=== PATIENT | male | born 1970 | race African-American/Black ===

== ENCOUNTER 2019-04-12 14:36 | Emergency (ER) | payer SELFPAY ==
[2019-04-12] MEDS ORDERED: ASPIRIN 81 MG TABLET, CHEWABLE PO ONE (15:13)
--- NOTE | 2019-04-12 15:15 | ER Document Report ---
ED Medical Screen (RME) - General Chief Complaint: Chest Pain Stated Complaint: CHEST PAIN Time Seen by Provider: 04/12/19 15:06 Mode of Arrival: Ambulatory Information source: Patient Notes: Patient presents emergency department with complaints of chest pain sharp that comes and goes on the left side of his chest since yesterday. Denies the chest pain at this time. Denies nausea vomiting diarrhea. Denies shortness of breath. Denies history of cardiac disease. Patient does have history of high blood pressure. Has been out of his medication for the past couple weeks. Patient is vacationing here from [place]. Denies family history of cardiac disease. Patient left eye swollen. Reports that started today. Does not wear contacts. I have greeted and performed a rapid initial assessment of this patient. A comprehensive ED assessment and evaluation of the patient, analysis of test results and completion of the medical decision making process will be conducted by additional ED providers. Dictation of this chart was performed using voice recognition software; therefore, there may be some unintended grammatical errors. TRAVEL OUTSIDE OF THE [place] IN LAST 30 DAYS: No - Related Data Allergies/Adverse Reactions: No Known Allergies Allergy (Verified 04/12/19 14:37) Physical Exam - Vital signs Vitals: Temp Pulse Resp BP Pulse Ox 98.9 F 84 20 137/89 H 97 04/12/19 14:50 04/12/19 14:50 04/12/19 14:50 04/12/19 14:50 04/12/19 14:50 Course - Vital Signs Vital signs: Temp Pulse Resp BP Pulse Ox 98.9 F 84 20 137/89 H 97 04/12/19 14:50 04/12/19 14:50 04/12/19 14:50 04/12/19 14:50 04/12/19 14:50
[2019-04-12 15:42] LABS: APPEARANCE,URINE SLIGHTLY-CLOUDY; BILIRUBIN,URINE NEGATIVE (NEGATIVE); COLOR,URINE YELLOW; GLUCOSE, URINE NEGATIVE (NEGATIVE); KETONES,URINE NEGATIVE (NEGATIVE); LEUKOCYTE ESTERASE,URINE NEGATIVE (NEGATIVE); NITRITE,URINE NEGATIVE (NEGATIVE); PROTEIN,URINE NEGATIVE (NEGATIVE); URINE SPECIFIC GRAVITY 1.026; UROBILINOGEN,URINE NEGATIVE mg/dL (<2.0)
--- NOTE | 2019-04-12 15:52 | RADIOLOGY REPORT (SQ) ---
EXAM DESCRIPTION: CHEST 2 VIEWS COMPLETED DATE/TIME: 04/12/2019 3:41 pm REASON FOR STUDY: cp COMPARISON: None. EXAM PARAMETERS: NUMBER OF VIEWS: two views TECHNIQUE: Digital Frontal and Lateral radiographic views of the chest acquired. RADIATION DOSE: NA LIMITATIONS: none FINDINGS: LUNGS AND PLEURA: No opacities, masses or pneumothorax. No pleural effusion. MEDIASTINUM AND HILAR STRUCTURES: No masses or contour abnormalities. HEART AND VASCULAR STRUCTURES: Heart normal size. No evidence for failure. BONES: No acute findings. HARDWARE: None in the chest. OTHER: No other significant finding. IMPRESSION: NO ACUTE RADIOGRAPHIC FINDING IN THE CHEST. TECHNICAL DOCUMENTATION: JOB ID: [id number] [employer]- All Rights Reserved Reading location - IP/workstation name: [email or web address]
[2019-04-12 16:04] LABS: ABSOLUTE BASOPHILS # (AUTO) 0.1 10^3/uL (0.0-0.2); ABSOLUTE EOSINOPHILS # (AUTO) 0.3 10^3/uL (0.0-0.6); ABSOLUTE MONOCYTES (AUTO) 0.7 10^3/uL (0.1-1.4); ABSOLUTE NEUT (AUTO) 8.7 10^3/uL (1.7-8.2); BASOPHILS % (AUTO) 0.8 % (0-2); EOSINOPHILS % (AUTO) 2.3 % (0-6); HEMATOCRIT 40.6 % (37.9-51.0); HEMOGLOBIN 13.6 g/dL (13.5-17.0); LYMPHOCYTES % (AUTO) 23.3 % (13-45); MEAN CORPUSCULAR HEMOGLOBIN 27.5 pg (27.0-33.4); MEAN CORPUSCULAR HGB CONC 33.4 g/dL (32.0-36.0); MEAN CORPUSCULAR VOLUME 82 fl (80-97); MONOCYTES % (AUTO) 5.8 % (3-13); PLATELET COUNT 415 10^3/uL (150-450); RED BLOOD COUNT 4.94 10^6/uL (4.35-5.55); RED CELL DISTRIBUTION WIDTH 14.7 % (11.5-14.0); SEGMENTED NEUTROPHILS % (AUTO) 67.8 % (42-78); TOTAL CELLS COUNTED % (AUTO) 100 %; WHITE BLOOD COUNT 12.9 10^3/uL (4.0-10.5)
--- NOTE | 2019-04-12 16:05 | ER Document Report ---
ED General - General Chief Complaint: Chest Pain Stated Complaint: CHEST PAIN Time Seen by Provider: 04/12/19 15:06 Primary Care Provider: [facility] [Provider Group] - Follow up as needed Mode of Arrival: Ambulatory TRAVEL OUTSIDE OF THE [place] IN LAST 30 DAYS: No - HPI Notes: Patient is a 48-year-old male that presents to the emergency department for chief complaint of chest pain and left eye redness. Patient states yesterday and today he had 2 episodes of a chest pain. He states it is an ache on the left side of his chest that lasts for 1 to 2 seconds at a time and then completely resolves. The pain has no associated symptoms incl uding diaphoresis nausea/vomiting, shortness of breath, palpitations or lightheadedness. Patient denies history of cardiac disease in the past. He denies family history of cardiac disease. He does have hypertension and ran out of his blood pressure medications since he is here on vacation. He has never had a stress test performed in the past. Patient also states that when he woke up this morning he had some irritation in his left eye and has noticed that it has become increasingly red and swollen. He states it is irritated but not particularly painful or itchy. He denies vision changes. He denies injury to the eye. Past Medical History: Hypertension Past Surgical History: Back surgery, hernia repair Social History: Denies drugs alcohol and tobacco Family History: Reviewed and noncontributory for presenting illness Allergies: Reviewed, see documented allergy list. REVIEW OF SYSTEMS: CONSTITUTIONAL : No fever No chills No diaphoresis No recent illness EENT: No vision changes Left eye redness No congestion No sore throat CARDIOVASCULAR: chest pain No palpitations RESPIRATORY: No shortness of breath No cough No difficulty breathing GASTROINTESTINAL: No abdominal pain No nausea No vomiting No diarrhea GENITOURINARY: No dysuria No hematuria No difficulty urinating MUSCULOSKELETAL: No back pain No leg pain No arm pain SKIN: No rashes No lesions LYMPHATIC: No swollen, enlarged glands. NEUROLOGICAL: No lightheadedness No headache No weakness No paresthesias PSYCHIATRIC: No anxiety No depression PHYSICAL EXAMINATION: Vital signs reviewed, nursing noted reviewed. GENERAL: Well-appearing, obese and in no acute distress. HEAD: Atraumatic, normocephalic. EYES: extraocular movements intact, sclera anicteric, left eye conjunctival injection, left upper eyelid mild edema with no erythema. Normal right conjunct brenda a. No pain with ocular movement. PERRLA. ENT: nares patent, oropharynx clear without exudates. Moist mucous membranes. NECK: Normal range of motion, supple without lymphadenopathy LUNGS: Breath sounds clear to auscultation bilaterally and equal. No wheezes rales or rhonchi. HEART: Regular rate and rhythm without murmurs, +2/4 bilateral radial pulse ABDOMEN: Soft, nontender, normoactive bowel sounds. No rebound, guarding, or rigidity. No masses appreciated. EXTREMITIES: Nontender, good range of motion, no pitting or edema. NEUROLOGICAL: No focal neurological deficits. Moves all extremities spontaneously Motor and sensory grossly intact on exam. PSYCH: Normal mood, normal affect. SKIN: Warm, Dry, normal turgor, no rashes or lesions noted on exposed skin - Related Data Allergies/Adverse Reactions: No Known Allergies Allergy (Verified 04/12/19 14:37) Past Medical History - General Information source: Patient - Social History Smoking Status: Unknown if Ever Smoked Family History: Reviewed & Not Pertinent Patient has suicidal ideation: No Patient has homicidal ideation: No - Past Medical History Cardiac Medical History: Reports: Hx Hypertension Renal/ Medical History: Denies: Hx Peritoneal Dialysis Physical Exam - Vital signs Vitals: Temp Pulse Resp BP Pulse Ox 98.9 F 84 20 137/89 H 97 04/12/19 14:50 04/12/19 14:50 04/12/19 14:50 04/12/19 14:50 04/12/19 14:50 Course - Re-evaluation Re-evalutation: 04/12/19 16:17 Vitals reviewed. Nursing notes reviewed. Patient is well-appearing. He had 2 episodes of chest pain lasting 1 to 2 seconds in duration early this morning and has not had recurrence of his pain since. He has a heart score of 2. Patient has not had a cardiac stress test in the past. At this point my suspicion for ACS is low. I did offer repeat troponin which patient has declined. He does have injection and irritation of the left eye with upper lid swelling suggestive of acute conjunctivitis. Patient will be started on erythromycin ophthalmic ointment. He is not having any pain with ocular movement to suggest post septal cellulitis or pain in the eye to suggest glaucoma. Patient's blood pressure medication will be refilled. I did advise that he have a cardiac stress test wh en he returns home this week. He will return to the emergency room if he develops any further chest pain or concerning symptoms. Patient is in agreement with plan of care and stable at discharge. Laboratory 04/12/19 04/12/19 15:20 15:44 WBC 12.9 H RBC 4.94 Hgb 13.6 Hct 40.6 MCV 82 MCH 27.5 MCHC 33.4 RDW 14.7 H Plt Count 415 Seg Neutrophils % 67.8 Lymphocytes % 23.3 Monocytes % 5.8 Eosinophils % 2.3 Basophils % 0.8 Absolute Neutrophils 8.7 H Absolute Lymphocytes 3.0 Absolute Monocytes 0.7 Absolute Eosinophils 0.3 Absolute Basophils 0.1 Urine Color YELLOW Urine Appearance SLIGHTLY-CLOUDY Urine pH 5.0 Ur Specific [place] 1.026 Urine Protein NEGATIVE Urine Glucose (UA) NEGATIVE Urine Ketones NEGATIVE Urine Blood NEGATIVE Urine Nitrite NEGATIVE Urine Bilirubin NEGATIVE Urine Urobilinogen NEGATIVE Ur Leukocyte Esterase NEGATIVE Urine WBC (Auto) 0 Urine RBC (Auto) 1 Urine Mucus (Auto) RARE Urine Ascorbic Acid 40 H Chest X-Ray 04/12/19 15:14 IMPRESSION: NO ACUTE RADIOGRAPHIC FINDING IN THE CHEST. 04/12/19 16:20 04/12/19 16:59 - Vital Signs Vital signs: Temp Pulse Resp BP Pulse Ox 98.9 F 84 20 137/89 H 97 04/12/19 14:50 04/12/19 14:50 04/12/19 14:50 04/12/19 14:50 04/12/19 14:50 - Laboratory Result Diagrams: 04/12/19 15:44 04/12/19 15:44 Laboratory results interpreted by me: 04/12/19 04/12/19 04/12/19 15:20 15:44 15:44 WBC 12.9 H RDW 14.7 H Absolute Neutrophils 8.7 H Creatine Kinase 460 H Urine Ascorbic Acid 40 H - EKG Interpretation by Me Additional EKG results interpreted by me: 04/12/19 16:05 Interpreted by myself 1441: Normal sinus rhythm, rate 85, normal axis, no ectopy, no STEMI Discharge - Discharge Clinical Impression: Chest pain Qualifiers: Chest pain type: unspecified Qualified Code(s): R07.9 - Chest pain, unspecified Conjunctivitis, left eye Qualifiers: Conjunctivitis type: blepharoconjunctivitis Blepharoconjunctivitis type: unspecified Qualified Code(s): H10.502 - Unspecified blepharoconjunctivitis, left eye Condition: Stable Disposition: HOME, SELF-CARE Instructions: Conjunctivitis ([facility]), Chest Pain of Unclear Cause ([facility]) Additional Instructions: Please return to the emergency department if you have any worsening, or concern of your symptoms. Please return to the emergency department if you develop chest pain, difficulty breathing, severe abdominal pain, or ongoing vomiting. Please follow-up with your primary care physician in 2-3 days and any other recommended physicians. If prescribed, take all medications as directed. If you have any questions or concerns do not hesitate to return the emergency department for evaluation. Have your primary care doctor prescribed a cardiac stress test when you return home this week Prescriptions: Amlodipine Besylate [Norvasc 10 mg Tablet] 10 mg PO DAILY #14 tablet Erythromycin Base [Erythromycin Oph 1 Gm Oint Ud] 1 applic OS TID 7 Days tube Referrals: [facility] [Provider Group] - Follow up as needed
[2019-04-12 16:26] LABS: ALANINE AMINOTRANSFERASE 28 U/L (21-72); ALBUMIN 4.2 g/dL (3.5-5.0); ALKALINE PHOSPHATASE 57 U/L (38-126); ANION GAP 8 (5-19); ASPARTATE AMINO TRANSFERASE 23 U/L (17-59); BILIRUBIN,DIRECT 0.2 mg/dL (0.0-0.4); BILIRUBIN,TOTAL 0.6 mg/dL (0.2-1.3); BLOOD UREA NITROGEN 16 mg/dL (7-20); CALCIUM 9.3 mg/dL (8.4-10.2); CARBON DIOXIDE 28 mmol/L (22-30); CHLORIDE 106 mmol/L (98-107); CREATINE KINASE 460 U/L (55-170); GLUCOSE 108 mg/dL (75-110); POTASSIUM 4.3 mmol/L (3.6-5.0); SODIUM 142.4 mmol/L (137-145); TOTAL PROTEIN 7.3 g/dL (6.3-8.2)
[2019-04-12 17:34] VITALS: BP 152/102
--- NOTE | 2019-04-12 23:50 | EKG REPORT ---
SEVERITY:- OTHERWISE NORMAL ECG - SINUS RHYTHM LEFT AXIS DEVIATION : Confirmed by: Violette Costello 12-Apr-2019 23:49:25
== END 2019-04-12 17:20 | disposition home or self-care (01) ==
LOC: ER 14:36
DX: R07.9 Chest pain, unspecified (principal); H10.502 Unspecified blepharoconjunctivitis, left eye; H57.12 Ocular pain, left eye; I10 Essential (primary) hypertension; Z79.899 Other long term (current) drug therapy
CPT/HCPCS: 36415; 71046; 80053; 81001; 82550; 84484; 85025; 93005; 93010; 99285